=== PATIENT | female | born 2000 | race Asian ===

== ENCOUNTER → 2022-03-23 | Outpatient (CLI) | payer MEDICAID | LOC: RAD 13:22 | DX: K80.20 Calculus of gallbladder without cholecystitis without obstruction (principal) ==

== ENCOUNTER 2022-03-30 04:09 | Emergency (ER) | payer MEDICAID ==
[~2022-03-30] VITALS: Ht 152.4 cm; Wt 65.8 kg
[2022-03-30] MEDS ORDERED: ACETAMINOPHEN-H1 TA2 PO (04:28)
[2022-03-30] MEDS ORDERED: IBU800 M1 PO (04:28)
[2022-03-30] MEDS ORDERED: GAS-X EXTRA ST125 MG PO (04:29)
[2022-03-30 04:59] LABS: BASO # 0.03 K/mm3 (0.02-0.10); EOS # 0.05 K/mm3 (0.04-0.40); EOS % 0.6 % (1.0-5.0); HEMATOCRIT 33.9 % (37.0-47.0); HEMOGLOBIN 10.9 g/dL (12.5-16.0); LYMPH# 2.48 K/mm3 (1.50-4.00); MEAN CELL VOLUME 90 fl (78-100); MEAN CORPUSCULAR HEMOGLOBIN 29 pg (27-31); MEAN CORPUSCULAR HGB CONC 32 g/dL (33-37); MONO # 0.57 K/mm3 (0.20-0.80); NEU # 5.83 K/mm3 (1.40-6.50); PLATELET COUNT 226 K/mm3 (130-400); RED BLOOD COUNT 3.78 M/mm3 (4.10-5.30); RED CELL DISTRIBUTION WIDTH 14.8 % (11.5-14.5)
[2022-03-30 05:06] LABS: ALBUMIN 3.8 g/dL (3.5-5.0); POTASSIUM 3.8 mmol/L (3.5-5.1)
[2022-03-30 05:09] LABS: TOTAL PROTEIN 6.4 g/dL (6.4-8.3)
[2022-03-30 05:11] LABS: TOTAL BILIRUBIN 0.4 mg/dL (0.2-1.2)
[2022-03-30 07:28] VITALS: BP 105/69
== END 2022-03-30 07:28 ==
LOC: ED 04:09
PROVIDERS: Physician Assistant
DX: R10.13 Epigastric pain (principal); R74.8 Abnormal levels of other serum enzymes; R74.01 Elevation of levels of liver transaminase levels; Z90.49 Acquired absence of other specified parts of digestive tract; Z32.02 Encounter for pregnancy test, result negative; Z28.310 Unvaccinated for COVID-19
CPT/HCPCS: J2405; J3010; Q9967

== ENCOUNTER 2022-07-04 09:06 | Emergency (ER) | payer MEDICAID ==
[~2022-07-04] VITALS: Ht 152.4 cm; Wt 69.1 kg
[~2022-07-04 09:06] MED LIST: ACETAMINOPHEN-H1 TA2 PO; GAS-X EXTRA ST125 MG PO; IBU800 M1 PO
[2022-07-04 10:16] LABS: BASO # 0.04 K/mm3 (0.02-0.10); EOS % 2.7 % (1.0-5.0); HEMATOCRIT 34.4 % (37.0-47.0); HEMOGLOBIN 12.5 g/dL (12.5-16.0); LYMPH# 2.21 K/mm3 (1.50-4.00); MEAN CELL VOLUME 88 fl (78-100); MEAN CORPUSCULAR HEMOGLOBIN 32 pg (27-31); MEAN CORPUSCULAR HGB CONC 36 g/dL (33-37); MEAN PLATELET VOLUME 11.5 fl (7.4-10.4); MONO # 0.49 K/mm3 (0.20-0.80); NEU # 4.39 K/mm3 (1.40-6.50); PLATELET COUNT 188 K/mm3 (130-400); RED BLOOD COUNT 3.93 M/mm3 (4.10-5.30); RED CELL DISTRIBUTION WIDTH 13.8 % (11.5-14.5); WHITE BLOOD COUNT 7.3 K/mm3 (4.8-10.8)
[2022-07-04 10:28] LABS: ALBUMIN 4.2 g/dL (3.5-5.0)
[2022-07-04 10:29] LABS: POTASSIUM 3.8 mmol/L (3.5-5.1)
[2022-07-04 10:30] LABS: CALCIUM 9.5 mg/dL (8.3-10.5)
[2022-07-04 10:31] LABS: TOTAL PROTEIN 8.6 g/dL (6.4-8.3)
[2022-07-04 10:33] LABS: TOTAL BILIRUBIN 0.4 mg/dL (0.2-1.2)
[2022-07-04 10:48] LABS: URINE APPEARANCE HAZY; URINE COLOR YELLOW
[2022-07-04 10:49] LABS: URINE BILIRUBIN NEGATIVE (NEGATIVE); URINE BLOOD NEGATIVE (NEGATIVE); URINE GLUCOSE NEGATIVE (NEGATIVE); URINE KETONE NEGATIVE (NEGATIVE); URINE LEUKOCYTE ESTERASE NEGATIVE (NEGATIVE); URINE MUCUS PRESENT (NOT PRESENT); URINE NITRATE NEGATIVE (NEGATIVE); URINE PROTEIN(semi-quant) NEGATIVE (NEGATIVE); URINE UROBILINOGEN NORMAL (NORMAL)
[2022-07-04] MEDS ORDERED: PRILOSEC 20MG20 MG PO (12:08)
[2022-07-04 12:20] VITALS: BP 108/68
== END 2022-07-04 12:24 | disposition home or self-care (01) ==
LOC: ED 09:06
PROVIDERS: Physician Assistant
DX: R10.13 Epigastric pain (principal); R11.0 Nausea; R79.81 Abnormal blood-gas level; Z90.49 Acquired absence of other specified parts of digestive tract; Z28.310 Unvaccinated for COVID-19
CPT/HCPCS: J2405; J3010; Q9967

== ENCOUNTER → 2023-03-15 | Outpatient (CLI) | payer MEDICAID ==
[~2023-03-15] VITALS: Ht 152.4 cm; Wt 73.5 kg
[~2023-03-15] MED LIST changes: +AZO1 EACH MC; +ONDANSETRON HYDR4 MG PO; +PRILOSEC 20MG20 MG PO; +TYLENOL EXTRA500 M2 PO
[2023-03-15 10:36] VITALS: BP 118/72
== END ==
LOC: AMSURD 09:46
DX: O21.0 Mild hyperemesis gravidarum (principal); O30.049 Twin pregnancy, dichorionic/diamniotic, unspecified trimester; Z3A.00 Weeks of gestation of pregnancy not specified
CPT/HCPCS: J2405; J7030